=== PATIENT | male | born 1995 ===

== ENCOUNTER 2017-12-08 14:08 | Outpatient (CLI) | payer OTHER | END 2017-12-08 14:13 | disposition home or self-care (01) | LOC: LAB 14:08 | DX: J11.1 Influenza due to unidentified influenza virus with other respiratory manifestations (principal) ==

== ENCOUNTER → 2017-12-08 | Outpatient (CLI) | payer OTHER ==
[~2017-12-08] VITALS: Ht 152.4 cm; Wt 66.7 kg
== END | disposition home or self-care (01) ==
LOC: PPHC 11:01
DX: R53.1 Weakness (principal); R05 Cough; R50.9 Fever, unspecified

== ENCOUNTER → 2017-12-08 | Outpatient (CLI) | payer OTHER | END | disposition home or self-care (01) | LOC: PPHC LAB 13:29 | DX: R50.9 Fever, unspecified (principal) ==

== ENCOUNTER 2018-04-24 21:19 | Emergency (ER) | payer OTHER ==
[~2018-04-24] VITALS: Ht 170.2 cm; Wt 70.3 kg
== END 2018-04-24 22:07 | disposition home or self-care (01) ==
LOC: ER 21:19
DX: S61.231A Puncture wound without foreign body of left index finger without damage to nail, initial encounter (principal); W46.0XXA Contact with hypodermic needle, initial encounter; Y93.89 Activity, other specified; Y92.69 Other specified industrial and construction area as the place of occurrence of the external cause; Y99.8 Other external cause status

== ENCOUNTER → 2018-08-10 | Outpatient (CLI) | payer OTHER | END | disposition home or self-care (01) | LOC: LAB 09:47 | DX: L93.2 Other local lupus erythematosus (principal) ==